=== PATIENT | female | born 1945 | race Caucasian/White ===

== ENCOUNTER 2021-12-11 08:35 | Emergency (ER) | payer MEDICARE, MEDICAID ==
[~2021-12-11] VITALS: Ht 165.1 cm; Wt 77.3 kg
[2021-12-11] MEDS ORDERED: ipratropium/albuterol 3ml nebule NEB ONE ×2 (08:55→10:50)
[2021-12-11] MEDS ORDERED: magnesium 2GM in 50ml NS 50 ML IV ONE (09:00)
--- NOTE | 2021-12-11 09:03 | NUR ---
SPOKE TO PATIENT REGARDING ALLEGIES,PT STATED SHE IS ALLERGIC TO ORAL PREDNISONE (THROAT SWELLING) BUT NOT IV STEROID .NOTIFIED DR SWAIN PER MD IT IS STILL OKAY TO GIVE IV METHYLPREDNISOLONE.
[2021-12-11 09:09] LABS: HEMOGLOBIN 13.4 g/dl (12.0-16.0)
--- NOTE | 2021-12-11 09:09 | NUR ---
PAGED RT AT THIS TIME.
[2021-12-11] MEDS ORDERED: methylPREDNISolone sod succ/PF 40mg inj. IV ONE (09:10)
[2021-12-11 09:11] LABS: HEMATOCRIT 39.2 % (35.0-45.0); MEAN CORPUSCULAR HEMOGLOBIN 30.2 PG (27.0-31.0); MEAN CORPUSCULAR HGB CONC 34.3 g/dL (33.0-36.5); MEAN CORPUSCULAR VOLUME 87.9 FL (78-98); PLATELET COUNT 219 X10'3 (140-440); RED BLOOD COUNT 4.46 X10'6 (4.20-5.60); RED CELL DISTRIBUTION WIDTH 13.8 % (11.5-14.5); WHITE BLOOD COUNT 5.8 X10'3 (4.5-11.0)
[2021-12-11 09:18] LABS: D-DIMER 0.54 MG/L FEU (0-0.50)
[2021-12-11 09:20] VITALS: BP 138/80
[2021-12-11 09:27] LABS: PLATELET ESTIMATE NORMAL; TOTAL CELLS COUNTED 100
[2021-12-11 09:29] LABS: ALANINE AMINOTRANSFERASE 48 U/L (12-78); ALBUMIN 3.6 G/DL (3.4-5.0); ALBUMIN/GLOBULIN RATIO 1.1 (1.1-1.5); ALKALINE PHOSPHATASE 100 IU/L (46-116); ANION GAP 8 (8-16); ASPARTATE AMINO TRANSFERASE 27 U/L (10-37); BILIRUBIN,TOTAL 0.5 MG/DL (0.1-1.0); BLOOD UREA NITROGEN 11 MG/DL (7-18); BUN/CREATININE RATIO 12.5 (6.6-38.0); CALCIUM 8.7 MG/DL (8.5-10.1); CHLORIDE 107 MMOL/L (99-107); CREATININE 0.88 MG/DL (0.40-0.90); GLUCOSE 144 MG/DL (70-104); SODIUM 143 MMOL/L (135-145); TOTAL PROTEIN 6.8 G/DL (6.4-8.2); eGFR 62 ML/MIN
[2021-12-11] MEDS ORDERED: potassium Cl 20 mEq SR tablet PO STA (10:01)
[2021-12-11] MEDS ORDERED: DEXA6TAB6 PO (12:18)
[2021-12-11] MEDS ORDERED: methylPREDNISolone sod succ/PF 40mg inj. IV SCH (14:00)
== END 2021-12-11 12:58 | disposition home or self-care (01) ==
LOC: ER 08:36
DX: J45.901 Unspecified asthma with (acute) exacerbation (principal); Z20.822 Contact with and (suspected) exposure to COVID-19; Z88.8 Allergy status to other drugs, medicaments and biological substances
CPT/HCPCS: 36415; 71045; 80053; 83880; 84484; 85007; 85025; 85379; 87635; 93005; 94640; 96365; 96366; 96375; 99285; C9803; J2920; J3475; 94760